=== PATIENT | male | born 1970 | race Caucasian/White ===

== ENCOUNTER 2017-02-02 09:25 | Emergency (ER) | payer BC, OTHER ==
[2017-02-02 10:05] VITALS: BP 129/85
[2017-02-02 11:02] LABS: CHLORIDE,CL 104 mmol/L (98-107); SODIUM,NA 139 mmol/L (136-145)
--- NOTE | 2017-02-04 10:03 | ER ---
Date of Service: 02/02/2017 SUBJECTIVE: Sanjeev presents to the emergency room with complaints of cough and chest congestion that he has been experiencing for the last 2-3 days. He states that he has been doing a lot of physical activity and states also that his low back has been a bit painful. States that he does have a cough that is not productive of any sputum. He is concerned because he has been exposed to mold and mildews which he states that he thinks he has some allergy to. PAST MEDICAL HISTORY: Denies. MEDICATIONS: None. ALLERGIES: NKDA. REVIEW OF SYSTEMS: General: No fever or chills. HEENT: No sore throat, rhinorrhea, or congestion. Respiratory: Please see history of present illness. GI: No nausea, vomiting, or diarrhea. No melena, hematochezia, or hematemesis. : Denies any dysuria. Musculoskeletal: No myalgias or arthralgias. PHYSICAL EXAMINATION: General: This is a 46-year-old male patient in no acute distress. Vital Signs: Blood pressure is 129/85, pulse rate is 95, O2 saturations 97%, respiratory rate is 20, temperature is 38.1. Skin: Warm, pink, and dry. HEENT: Head is normocephalic, atraumatic. Eyes, PERRLA. Extraocular movements intact. Mouth, oral mucosa is moist. Lungs: Clear to auscultation. Heart: Regular rate and rhythm. Abdomen: Soft and nontender. There is no hepatosplenomegaly or masses noted. Extremities: Without edema. Neurologic: He is alert and oriented, answers all questions appropriately. His speech is fluent. His gait is within normal limits. DIAGNOSTIC DATA: PA and lateral chest x-ray was obtained. There was no evidence of any acute infiltrate. A 2-view chest x-ray was obtained. There was no evidence of any acute pathology. ASSESSMENT: Acute bronchitis. PLAN: The patient will be discharged. Doxycycline 100 mg twice daily for 10 days. Tylenol, ibuprofen for fever and discomfort. We will have him follow up in the clinic in the next 10 to 14 days. All questions were answered. MWK: 02/03/2017 20:03:44 MODL: 02/03/2017 23:30:43 /[id number]
== END 2017-02-02 11:25 | disposition home or self-care (01) ==
LOC: EDBD → VM.ED 09:25
DX: J20.9 Acute bronchitis, unspecified (principal)
CPT/HCPCS: 36415; 71020; 80053; 81001; 83605; 85025; 85610; 86140; 99283

== ENCOUNTER 2021-03-03 23:45 | Emergency (ER) | payer OTHER ==
--- NOTE | 2021-03-04 00:03 | EDM.PDOC ---
ED HPI GENERAL MEDICAL PROBLEM - General Chief Complaint: ENT Problem Stated Complaint: Toothache, facial swelling Time Seen by Provider: 03/04/21 00:05 Source of Information: Reports: Patient - History of Present Illness INITIAL COMMENTS - FREE TEXT/NARRATIVE: Sanjeev is a 50 y/o male who presents to the ER with tooth pain. He reports the pain has been ongoing for the last 1 1/2 weeks. No fever. He did try taking 2 doses of Amoxicillin that he had at home and he thought that helped, but then he ran out and tonight the pain seemed to get worse. He has not tried to get into a dentist as of yet. - Related Data Allergies Allergy/AdvReac Type Severity Reaction Status Date / Time No Known Allergies Allergy Verified 02/02/17 09:39 Home Meds: Home Meds Amoxicillin 875 mg PO BID #18 tablet 03/03/21 [Rx] Past Medical History - Past Health History Medical/Surgical History: Denies Medical/Surgical History Review of Systems - Review of Systems Review Of Systems: See Below Constitutional: Reports: No Symptoms Eyes: Reports: No Symptoms Ears: Reports: No Symptoms Nose: Reports: No Symptoms Mouth/Throat: Reports: Pain (Tooth pain) Respiratory: Reports: No Symptoms Cardiovascular: Reports: No Symptoms GI/Abdominal: Reports: No Symptoms Genitourinary: Reports: No Symptoms Musculoskeletal: Reports: No Symptoms Skin: Reports: No Symptoms Neurological: Reports: No Symptoms Psychiatric: Reports: No Symptoms ED EXAM, GENERAL - Physical Exam Exam: See Below General Appearance: Alert, WD/WN, No Apparent Distress (Adult male) Ears: Hearing Grossly Normal Nose: Normal Inspection, Normal Mucosa Throat/Mouth: Normal Inspection, Normal Lips, Normal Voice, Other (Multiple fillings noted, tooth #31 in the right lower region is filled but noted to be broken, tender to touch along the gumline, no drainage noted.) Head: Atraumatic, Normocephalic Neck: Normal Inspection Respiratory/Chest: No Respiratory Distress GI/Abdominal: Soft (Male) Exam: Deferred Rectal (Males) Exam: Deferred Back Exam: Normal Inspection Extremities: Normal Inspection, Normal Range of Motion Neurological: Alert, Oriented, CN II-XII Intact Skin Exam: Warm, Dry, Intact, Normal Color Course - Vital Signs Text/Narrative:: The patient was seen by the DIPLOMATIC INTERPRETER. No labs or imaging done. He was offered a dental block for pain management, but declined. He was given abx to take, but DIPLOMATIC INTERPRETER discussed that the broken tooth needs dental care and the abx may not resolve the issue. He was given discharge instructions and left the ER in stable condition. - Orders/Labs/Meds Orders: Active Orders 24 hr Category Date Time Status Amoxicillin [Take Home: Amoxicillin 875 MG Tab, 2 Tab Med 03/03/21 23:57 Once Pack] 1 packet PO ONETIME ONE Departure - Departure Time of Disposition: 23:58 Disposition: Home, Self-Care 01 Condition: Good Clinical Impression: Fracture of tooth Qualifiers: Encounter type: initial encounter Fracture type: closed Qualified Code(s): S02.5XXA - Fracture of tooth (traumatic), initial encounter for closed fracture - Discharge Information *PRESCRIPTION DRUG MONITORING PROGRAM REVIEWED*: No *COPY OF PRESCRIPTION DRUG MONITORING REPORT IN PATIENT SERGIO: No Prescriptions: Amoxicillin 875 mg PO BID #18 tablet Instructions: Dental Abscess, [id number], Tooth Injuries - My Orders Last 24 Hours: My Active Orders 03/03/21 23:57 Amoxicillin [Take Home: Amoxicillin 875 MG Tab, 2 Tab Pack] 1 packet PO ONETIME ONE - Assessment/Plan Last 24 Hours: My Active Orders 03/03/21 23:57 Amoxicillin [Take Home: Amoxicillin 875 MG Tab, 2 Tab Pack] 1 packet PO ONETIME ONE Assessment:: 1)Fractured Tooth 2)Dental Pain Plan: -Amoxicillin 875mg oral twice daily for 10 days #2(ER) #18(Rx) -Ibuprofen 400mg oral every 6 hours as needed for pain -Acetaminophen 325mg 3 tablets oral every 6 hours as needed for pain -Use dental wax as needed to the broken tooth for comfort -Apply ice or heat to your cheek region for comfort -Eat soft foods that aren't extremely hot or cold -Call a dental clinic [facility] to schedule an appointment -Return to the ER if you have any further concerns or you need to return for further pain control
[2021-03-04] MEDS: Take Home: Amoxicillin 875 MG Tab, 2 Tab Pack PO ONE (00:20)
[2021-03-04 05:26] VITALS: BP 143/81; PULSE 69
== END 2021-03-04 00:26 | disposition home or self-care (01) ==
LOC: VM.ED 23:45
DX: S02.5XXA Fracture of tooth (traumatic), initial encounter for closed fracture (principal); X58.XXXA Exposure to other specified factors, initial encounter
CPT/HCPCS: 64400; 99282; A9270; 99283

== ENCOUNTER 2023-08-17 08:52 | Emergency (ER) | payer OTHER ==
[2023-08-17] MEDS: Sodium Chloride 0.9% 10 ML Syringe FLUSH PRN (09:03)
[2023-08-17] MEDS: HYDROmorphone 1 MG/ML Syringe IVPUSH ONE (09:06)
[2023-08-17] MEDS: Ondansetron 4 MG/2 ML SDV IVPUSH ONE (09:06)
[2023-08-17] MEDS ORDERED: Sodium Chloride 0.9% 1,000 ML IV SCH (09:15)
[2023-08-17 09:17] LABS: BASOPHILS PERCENT AUTO 0.3 % (0.2-1.2); EOSINOPHILS ABSOLUTE AUTO 0.3 x10^3/uL (0.0-0.5); EOSINOPHILS PERCENT AUTO 2.3 % (0.0-4.0); HEMATOCRIT 48.1 % (40.0-52.0); IMMATURE GRAN ABSOLUTE AUTO 0.04 x10^3/uL (0.00-0.07); LYMPHOCYTES ABSOLUTE AUTO 4.6 x10^3/uL (1.0-4.8); LYMPHOCYTES PERCENT AUTO 31.3 % (25.0-50.0); MEAN CORPUSCULAR HEMOGLOBIN 29.3 pg (26.0-32.0); MEAN CORPUSCULAR HGB CONC 35.3 g/dL (32.0-36.0); MEAN CORPUSCULAR VOLUME 82.9 fL (78.0-93.0); MONOCYTES ABSOLUTE AUTO 1.1 x10^3/uL (0.0-0.8); MONOCYTES PERCENT AUTO 7.6 % (2.0-11.0); NEUTROPHILS ABSOLUTE AUTO 8.5 x10^3/uL (1.8-7.7); NEUTROPHILS PERCENT AUTO 58.2 % (50.0-80.0); PLATELET COUNT,PLT 370 x10^3/uL (130-400); WHITE BLOOD CELL COUNT,WBC 14.7 x10^3/uL (4.0-10.0)
[2023-08-17 09:37] LABS: INR 0.9 (0.9-1.1); PROTHROMBIN TIME 9.9 SEC (9.5-12.2); PTT,PARTIAL THROMBOPLSTIN TIME 24.4 SEC (23.6-33.6)
[2023-08-17 09:46] VITALS: BP 147/87; PULSE 59
[2023-08-17 09:46] LABS: LACTIC ACID 3.1 mmol/L (0.4-2.0)
[2023-08-17 09:49] LABS: A/G RATIO 0.86; ALANINE AMINOTRANSFERASE,ALT 28 U/L (16-63); ALBUMIN 3.6 g/dL (3.4-5.0); ALKALINE PHOSPHATASE 86 U/L (46-116); AMYLASE 37 U/L (25-115); ASPARTATE AMNIOTRANSFERASE,AST 36 U/L (15-37); BILIRUBIN TOTAL 0.7 mg/dL (0.2-1.0); BLOOD UREA NITROGEN,BUN 16 mg/dL (7-18); C-REACTIVE PROTEIN 1.41 mg/dL (<=0.50); CALCIUM 8.8 mg/dL (8.5-10.1); CARBON DIOXIDE,CO2 18 mmol/L (21-32); CHLORIDE,CL 107 mmol/L (98-107); CREATININE 1.2 mg/dL (0.70-1.30); GLUCOSE RANDOM 134 mg/dL (70-99); LIPASE 33 U/L (19-71); MAGNESIUM 1.8 mg/dL (1.8-2.4); POTASSIUM,K 3.3 mmol/L (3.5-5.1); PROTEIN TOTAL,TP 7.8 g/dL (6.4-8.2); SODIUM,NA 141 mmol/L (136-145); TSH ULTRASENSITIVE 1.413 uIU/mL (0.358-3.74)
[2023-08-17 09:50] LABS: ANION GAP 19.3 mmol/L (5-15); ESTIMATED GFR 72 mL/min (>=60)
[2023-08-17 10:04] LABS: CORONAVIRUS COVID-19 NAA POSITIVE (NEGATIVE); INFLUENZA A NAA NEGATIVE (NEGATIVE); INFLUENZA B NAA NEGATIVE (NEGATIVE); RESPIRATORY SYNCYTIAL VIR NAA NEGATIVE (NEGATIVE)
[2023-08-17] MEDS: Iopamidol 612 MG/ML 100 ML Bottle IVPUSH ONE (10:54)
[2023-08-17] MEDS: Pantoprazole 40 MG Vial IVPUSH ONE (11:30)
== END 2023-08-17 12:00 | disposition home or self-care (01) ==
LOC: VM.ED 08:52
DX: U07.1 COVID-19 (principal); K29.80 Duodenitis without bleeding
CPT/HCPCS: 0241U; 71045; 71260; 74177; 80053; 82150; 83605; 83690; 83735; 84443; 84484; 85025; 85610; 85730; 86140; 93005; 93010; 96374; 96375; 99284; 99285-25; C9113; J1170; J2405; J3490; Q9967

== ENCOUNTER 2024-12-05 12:58 | Emergency (ER) | payer OTHER ==
[2024-12-05] MEDS ORDERED: Sodium Chloride 0.9% 10 ML Syringe FLUSH PRN (13:23)
[2024-12-05 13:30] LABS: BASOPHILS PERCENT AUTO 0.2 % (0.2-1.2); EOSINOPHILS ABSOLUTE AUTO 0.1 x10^3/uL (0.0-0.5); EOSINOPHILS PERCENT AUTO 0.4 % (0.0-4.0); HEMATOCRIT 49.4 % (40.0-52.0); HEMOGLOBIN 17.2 g/dL (14.0-18.0); IMMATURE GRAN ABSOLUTE AUTO 0.03 x10^3/uL (0.00-0.07); LYMPHOCYTES ABSOLUTE AUTO 2.3 x10^3/uL (1.0-4.8); LYMPHOCYTES PERCENT AUTO 14.2 % (25.0-50.0); MEAN CORPUSCULAR HEMOGLOBIN 29.5 pg (26.0-32.0); MEAN CORPUSCULAR HGB CONC 34.8 g/dL (32.0-36.0); MEAN CORPUSCULAR VOLUME 84.7 fL (78.0-93.0); MONOCYTES ABSOLUTE AUTO 0.9 x10^3/uL (0.0-0.8); MONOCYTES PERCENT AUTO 5.3 % (2.0-11.0); NEUTROPHILS PERCENT AUTO 79.7 % (50.0-80.0); PLATELET COUNT,PLT 296 x10^3/uL (130-400); RED BLOOD CELL COUNT 5.83 x10^6/uL (4.5-6.0); WHITE BLOOD CELL COUNT,WBC 16.3 x10^3/uL (4.0-10.0)
[2024-12-05 13:41] LABS: ALANINE AMINOTRANSFERASE,ALT 24 U/L (16-63); ALBUMIN 3.5 g/dL (3.4-5.0); ALKALINE PHOSPHATASE 88 U/L (46-116); AMYLASE 43 U/L (25-115); ASPARTATE AMNIOTRANSFERASE,AST 15 U/L (15-37); BILIRUBIN TOTAL 0.7 mg/dL (0.2-1.0); BLOOD UREA NITROGEN,BUN 13 mg/dL (7-18); C-REACTIVE PROTEIN 0.52 mg/dL (<=0.50); CALCIUM 8.9 mg/dL (8.5-10.1); CARBON DIOXIDE,CO2 27 mmol/L (21-32); CHLORIDE,CL 101 mmol/L (98-107); CREATININE 1.2 mg/dL (0.70-1.30); GLUCOSE RANDOM 116 mg/dL (70-99); LIPASE 58 U/L (19-71); MAGNESIUM 2.1 mg/dL (1.8-2.4); POTASSIUM,K 3.8 mmol/L (3.5-5.1); SODIUM,NA 139 mmol/L (136-145)
[2024-12-05 13:42] LABS: ANION GAP 14.8 mmol/L (5-15); ESTIMATED GFR 71 mL/min (>=60)
[2024-12-05] MEDS: HYDROmorphone 0.5 MG/0.5 ML Syringe IVPUSH ONE ×2 (13:42→17:37)
[2024-12-05] MEDS: Ketorolac 15 MG/ML SDV IVPUSH ONE ×2 (13:42→17:36)
[2024-12-05] MEDS: Lactated Ringers 1,000 ML IV ONE (13:42)
[2024-12-05] MEDS: Ondansetron 4 MG/2 ML SDV IVPUSH ONE ×2 (13:42→17:37)
[2024-12-05] MEDS: Iopamidol 612 MG/ML 100 ML Bottle IVPUSH ONE (14:59)
[2024-12-05 15:04] LABS: APPEARANCE,URINE CLEAR (CLEAR); BILIRUBIN,URINE SMALL (NEGATIVE); COLOR,URINE DARK YELLOW (YELLOW); GLUCOSE,URINE NEGATIVE (NEGATIVE); KETONES,URINE TRACE mg/dL (NEGATIVE); LEUKOCYTE ESTERASE,URINE NEGATIVE (NEGATIVE); NITRITE,URINE NEGATIVE (NEGATIVE); OCCULT BLOOD,URINE SMALL (NEGATIVE); PROTEIN,URINE 30 mg/dL (NEGATIVE)
[2024-12-05 15:05] LABS: BACTERIA,URINE OCCASIONAL /HPF (NOT SEEN); MUCUS,URINE OCCASIONAL /LPF (NOT SEEN); WBC,URINE 0-5 /HPF (NOT SEEN)
[2024-12-05] MEDS: Take Home: Ondansetron 4 MG Tab.DIS, 5 Tab Pack PO ONE (17:50)
[2024-12-05] MEDS: Take Home: Acetaminophen/HYDROcodone 325-5 MG, 5 Tab Pack PO ONE (17:56)
[2024-12-05 19:50] VITALS: BP 154/72; PULSE 86
== END 2024-12-05 18:00 | disposition home or self-care (01) ==
LOC: VM.ED 12:58
DX: K82.9 Disease of gallbladder, unspecified (principal); Z86.16 Personal history of COVID-19
CPT/HCPCS: 74177; 80053; 81001; 82150; 83605; 83690; 83735; 85025; 86140; 96361; 96374; 96375; 96376; 99284; 99285-25; A9270-GY; J1885; J2405; J7120; Q0162; Q9967

== ENCOUNTER 2024-12-05 23:08 | Emergency (ER) | payer OTHER ==
[2024-12-05 23:28] VITALS: BP 173/95; PULSE 57
[2024-12-05] MEDS: Promethazine 25 MG/ML SDV IM ONE (23:50)
[2024-12-06] MEDS: Acetaminophen/oxyCODONE 325-5 MG Tab PO ONE (00:12)
[2024-12-06] MEDS: Take Home: Promethazine 25 MG, 4 Tab Pack PO ONE (00:46)
== END 2024-12-06 01:04 | disposition home or self-care (01) ==
LOC: VM.ED 23:08
DX: K82.9 Disease of gallbladder, unspecified (principal); Z86.16 Personal history of COVID-19; Z88.0 Allergy status to penicillin; Z79.899 Other long term (current) drug therapy
CPT/HCPCS: 96372; 99283; 99284; A9270-GY; J2550